=== PATIENT | female | born 1995 | race Caucasian/White ===

== ENCOUNTER 2022-09-17 16:13 | Emergency (ER) | payer OTHER ==
[~2022-09-17] VITALS: Ht 165 cm; Wt 97.0 kg
[2022-09-17] MEDS ORDERED: ORPHENADRINE 60 MG/2 ML (NORFLEX) AMP (ED ONLY) IM ONE (17:00)
--- NOTE | 2022-09-17 17:02 | ED General ---
General Chief Complaint: General Problems/Pain Stated Complaint: RIGHT ARM PAIN|FROM WRIST TO NECK Nursing Triage Note: ARRIVED VIA AMB TO FT WITH COMPLAINTS OF WAKING UP WITH RIGHT NECK/ARM PAIN TODAY AND SCIATICA FOR WEEKS. Source of Information: Patient Exam Limitations: No Limitations History of Present Illness Date Seen by Provider: September 17, 2022 Time Seen by Provider: 16:49 Initial Comments 27-year-old female presents to the ED with complaints of sciatic nerve pain for the last 2 weeks. Reports the pain starts in her lower back and radiates posteriorly down both legs to her feet. She reports intermittent numbness and tingling in her legs, states it has been a month since she had numbness and tingling. She reports intermittent numbness and tingling in both of her hands and feet. Denies bowel incontinence. Reports that she has some issues with incontinence since having 4 children, states that it occurs if she does not get to the bathroom in time. Denies any bladder or bowel retention. Denies difficulty walking. She also reports that this morning she woke up with pain from her right wrist up to her neck. Patient reports that she thinks that her bed is poor, and that is why she is having these pains. She reports that she took ibuprofen approximately 1 hour ago, states that it has helped the pain. Allergies and Home Medications Allergies Coded Allergies: codeine (Verified Adverse Reaction, Unknown, VOMITING, 09/17/22) Patient Home Medication List Home Medication List Reviewed: Yes Cyclobenzaprine HCl (Cyclobenzaprine HCl) 10 Mg Tablet, 10 MG PO TID Prescribed by: Jackie Puckett on 09/17/221756 Methylprednisolone (Methylprednisolone Dose Pack) 4 Mg Tab.ds.pk, 4 MG PO UD Prescribed by: Jackie Puckett on 09/17/221756 Review of Systems Review of Systems Constitutional: see HPI Past Shyhsra-Pfuyqq-Swjdvl Hx Patient Social History Tobacco Use?: Yes Tobacco type used: Cigarettes Smoking Status: Current Everyday Smoker Alcohol Use?: No Physical Exam Vital Signs Vital Signs - First Documented 09/17/22 16:30 Temp 36.5 Pulse 86 Resp 16 B/P (MAP) 111/78 (89) Pulse Ox 99 O2 Delivery Room Air Capillary Refill : Less Than 3 Seconds Height, Weight, BMI Height: '" Weight: lbs. oz. kg; 35.00 BMI Method: General Appearance: No Apparent Distress, WD/WN Neck: Non Tender, Supple Respiratory: Lungs Clear, Normal Breath Sounds, No Accessory Muscle Use Cardiovascular: Regular Rate, Rhythm Back: Muscle Spasm (Muscle tenderness to palpation), Vertebral Tenderness (Tenderness in thoracic and lumbar region) Extremity: Normal Capillary Refill, Normal Inspection, Normal Range of Motion Neurologic/Psychiatric: Alert, Normal Mood/Affect Skin: Normal Color, Warm/Dry Progress/Results/Core Measures Suspected Sepsis SIRS Temperature: Pulse: 86 Respiratory Rate: 16 Blood Pressure 111 /78 Mean: 89 Results/Orders My Orders Orders - JACKIE PUCKETT APRN Orphenadrine Inj (Ed Only) (Norflex Inje (09/17/22 17:00) Dexamethasone Injection (Decadron Inje (09/17/22 17:00) Sacrum And Coccyx (09/17/22 16:56) Ct Thoracic/Lumbar Spine Wo (09/17/22 16:54) Ct Cervical Spine Wo (09/17/22 ) Medications Given in ED Vital Signs/I&O 09/17/22 09/17/22 16:30 18:06 Temp 36.5 36.5 Pulse 86 80 Resp 16 16 B/P (MAP) 111/78 (89) 107/74 Pulse Ox 99 99 O2 Delivery Room Air Room Air Capillary Refill : Less Than 3 Seconds Blood Pressure Mean: 89 Progress Note : Time: 17:01 Progress Note Patient seen and evaluated, resting comfortably in recliner, no acute distress. Based on exam and symptoms, CT ordered of cervical, thoracic, lumbar spine. Sacrum and coccyx x-rays ordered. Norflex and Decadron ordered. Patient took ibuprofen 1 hour ago, will not order Toradol. Imaging reviewed. Mild early degenerative changes at L5-S1 witj slight disc bulging and endplate spurring causing mild narrowing of the neural foramen. Minimal osteoarthritic changes of the SI joints. Results discussed with patient. Will discharge with medrol dose pack and muscle relaxer. Discharge instructions and return precautions provided. Diagnostic Imaging Diagonstic Imaging: CT Plain Films/CT/US/NM/MRI: c-spine Comments [facility] [place], [place] NAME: [facility]ALI[facility]LEY [facility] REC#: [id number] PT STATUS: DEP ER : 1995 PHYSICIAN: JACKIE PUCKETT APRN ADMIT DATE: 09/17/22/ER Signed Date of Exam:09/17/22 CT CERVICAL SPINE WO PROCEDURE: CT cervical spine without contrast. TECHNIQUE: Multiple contiguous axial images were obtained through the cervical spine without the use of intravenous contrast. Sagittal and coronal reformations were then performed. Auto Exposure Controls were utilized during the CT exam to meet ALARA standards for radiation dose reduction. INDICATION: Neck pain. Right arm and hand pain. FINDINGS: Cervical spine alignment is normal. There are normal relationships of the craniocervical junction. There are normal relationships of the lateral masses of C1 and C2. Facets are normally aligned. There is no facet joint or disc space widening. The vertebral body heights are maintained. There is no fracture. There is no suspicious bone lesion. By CT imaging, there are no findings to suggest high-grade cervical central canal or neural foraminal stenosis. The lung apices are clear. Soft tissues of the neck demonstrate no acute process. There are mildly prominent bilateral cervical chain lymph nodes which are likely reactive in a patient of this age. IMPRESSION: 1. Normal cervical spine alignment without fracture or suspicious bone lesion. 2. No findings of canal or foraminal stenosis 3. Mildly prominent cervical lymph nodes are likely reactive in a young patient of this age. Dictated by: Dictated on workstation # [id number] Dict: 09/17/22 1722 Trans: 09/17/221816 [facility] [id number] Interpreted by: FILIPE THOMAS MD Electronically signed by: FILIPE THOMAS MD 09/17/221816 Diagonstic Imaging: CT Plain Films/CT/US/NM/MRI: other (spine) Comments [facility]. [place] NAME: RYLEY FISHER [facility] REC#: [id number] PT STATUS: DEP ER : 1995 PHYSICIAN: JACKIE PUCKETT APRN ADMIT DATE: 09/17/22/ER Signed Date of Exam:09/17/22 CT THORACIC/LUMBAR SPINE WO PROCEDURE: CT thoracic and lumbar spine without contrast. TECHNIQUE: Multiple contiguous axial images were obtained through the thoracic and lumbar spine without the use of intravenous contrast. Sagittal and coronal reformations were then performed. All CT scans use one or more of the following dose optimizing techniques: automated exposure control, MA and/or KvP adjustment based on a patient size and exam type, or iterative reconstruction. INDICATION: Back pain. Sciatica. COMPARISON: No comparison of the thoracic and lumbar spine available. FINDINGS: Alignment of the thoracic and lumbar spine are both normal. The vertebral body heights are maintained. There are no findings of a fracture. There is no suspicious bone lesion. The facets are normally aligned. There are no findings of a pars defect. By CT imaging, there are no CT features to suggest significant thoracic canal stenosis or evidence to suggest high-grade lumbar canal stenosis. There are no CT findings to suggest high-grade foraminal stenosis. There is some mild narrowing of the neural foramen bilaterally at L5-S1 due to slight disc bulging and small endplate spurs. The visualized bones of the pelvis are normal. The paraspinal soft tissues are unremarkable. The aorta is normal in caliber. The kidneys are nonobstructed. The lungs are clear where visualized without findings of pneumonia or an effusion. IMPRESSION: 1. Normal height and alignment of the thoracic and lumbar spine without evidence of an acute fracture or suspicious bone lesion. 2. No CT findings to suggest significant thoracic or lumbar canal stenosis. 3. Mild early degenerative endplate changes at L5-S1 with slight disc bulging and endplate spurring resulting in mild narrowing of the neural foramen. Dictated by: Dictated on workstation # [id number] Dict: 09/17/22 1723 Trans: 09/17/221816 AS6 [id number] Interpreted by: FILIPE THOMAS MD Electronically signed by: FILIPE THOMAS MD 09/17/221816 Diagonstic Imaging: Xray Plain Films/CT/US/NM/MRI: other (sacrum and coccyx) Comments [facility] [place] [place] [place] NAME: RYLEY FISHER [facility] REC#: [id number] PT STATUS: DEP ER : 1995 PHYSICIAN: JACKIE PUCKETT APRN ADMIT DATE: 09/17/22/ER Signed Date of Exam:09/17/22 SACRUM AND COCCYX INDICATION: Sciatica and pain. FINDINGS: There are osteoarthritic-type changes demonstrated at the SI joints with some mild sclerosis. There are no features to suggest erosions. There is no fracture. The pelvic ring is intact. The hips are unremarkable. IMPRESSION: Minimal osteoarthritic changes of the SI joints without findings of diastasis, fracture or evidence of erosions. Dictated by: Dictated on workstation # [id number] Dict: 09/17/221728 Trans: 09/17/221816 AS6 [id number] Interpreted by: FILIPE THOMAS MD Electronically signed by: FILIPE THOMAS MD 09/17/221816 Departure Impression Primary Impression: Sciatic leg pain Additional Impressions: Osteoarthritis Bone spur Arm pain Disposition: HOME, SELF-CARE Condition: Stable Departure-Patient Inst. Decision time for Depature: 17:53 Patient Instructions: Osteoarthritis, Sciatica ED Add. Discharge Instructions: You may take 800 mg of ibuprofen every 8 hours with food as needed for pain. You may also take 1000 mg of Tylenol every 8 hours as needed for pain. Take Flexeril as needed for pain, it may make you sleepy. Take Medrol Dosepak as prescribed. Return for numbness or tingling in your inner thighs, bowel or bladder incontinence or retention, difficulty walking, or any other new, concerning, or worsening symptoms. All discharge instructions reviewed with patient and/or family. Voiced unde rstanding. Scripts Methylprednisolone (Methylprednisolone Dose Pack) 4 Mg Tab.ds.pk 4 MG PO UD for 6 Days, #21 PKG 0 Refills PER DOSE PACK INSTRUCTIONS Prov: JACKIE PUCKETT APRN 09/17/22 Cyclobenzaprine HCl (Cyclobenzaprine HCl) 10 Mg Tablet 10 MG PO TID, #20 TAB 0 Refills Prov: JACKIE PUCKETT APRN 09/17/22 JACKIE PUCKETT APRN September 17, 2022 17:02
--- NOTE | 2022-09-17 17:30 | Diagnostic Imaging Report ---
PROCEDURE: CT thoracic and lumbar spine without contrast. TECHNIQUE: Multiple contiguous axial images were obtained through the thoracic and lumbar spine without the use of intravenous contrast. Sagittal and coronal reformations were then performed. All CT scans use one or more of the following dose optimizing techniques: automated exposure control, MA and/or KvP adjustment based on a patient size and exam type, or iterative reconstruction. INDICATION: Back pain. Sciatica. COMPARISON: No comparison of the thoracic and lumbar spine available. FINDINGS: Alignment of the thoracic and lumbar spine are both normal. The vertebral body heights are maintained. There are no findings of a fracture. There is no suspicious bone lesion. The facets are normally aligned. There are no findings of a pars defect. By CT imaging, there are no CT features to suggest significant thoracic canal stenosis or evidence to suggest high-grade lumbar canal stenosis. There are no CT findings to suggest high-grade foraminal stenosis. There is some mild narrowing of the neural foramen bilaterally at L5-S1 due to slight disc bulging and small endplate spurs. The visualized bones of the pelvis are normal. The paraspinal soft tissues are unremarkable. The aorta is normal in caliber. The kidneys are nonobstructed. The lungs are clear where visualized without findings of pneumonia or an effusion. IMPRESSION: 1. Normal height and alignment of the thoracic and lumbar spine without evidence of an acute fracture or suspicious bone lesion. 2. No CT findings to suggest significant thoracic or lumbar canal stenosis. 3. Mild early degenerative endplate changes at L5-S1 with slight disc bulging and endplate spurring resulting in mild narrowing of the neural foramen. Dictated by: Dictated on workstation # [id number]
--- NOTE | 2022-09-17 17:31 | Diagnostic Imaging Report ---
PROCEDURE: CT cervical spine without contrast. TECHNIQUE: Multiple contiguous axial images were obtained through the cervical spine without the use of intravenous contrast. Sagittal and coronal reformations were then performed. Auto Exposure Controls were utilized during the CT exam to meet ALARA standards for radiation dose reduction. INDICATION: Neck pain. Right arm and hand pain. FINDINGS: Cervical spine alignment is normal. There are normal relationships of the craniocervical junction. There are normal relationships of the lateral masses of C1 and C2. Facets are normally aligned. There is no facet joint or disc space widening. The vertebral body heights are maintained. There is no fracture. There is no suspicious bone lesion. By CT imaging, there are no findings to suggest high-grade cervical central canal or neural foraminal stenosis. The lung apices are clear. Soft tissues of the neck demonstrate no acute process. There are mildly prominent bilateral cervical chain lymph nodes which are likely reactive in a patient of this age. IMPRESSION: 1. Normal cervical spine alignment without fracture or suspicious bone lesion. 2. No findings of canal or foraminal stenosis 3. Mildly prominent cervical lymph nodes are likely reactive in a young patient of this age. Dictated by: Dictated on workstation # [id number]
--- NOTE | 2022-09-17 17:32 | Diagnostic Imaging Report ---
INDICATION: Sciatica and pain. FINDINGS: There are osteoarthritic-type changes demonstrated at the SI joints with some mild sclerosis. There are no features to suggest erosions. There is no fracture. The pelvic ring is intact. The hips are unremarkable. IMPRESSION: Minimal osteoarthritic changes of the SI joints without findings of diastasis, fracture or evidence of erosions. Dictated by: Dictated on workstation # [id number]
[2022-09-17] MEDS ORDERED: METH4TAB10 PO (17:57)
[2022-09-17] MEDS ORDERED: CYCL10TA25 PO (17:57)
[2022-09-17 18:06] VITALS: BP 107/74
== END 2022-09-17 18:07 | disposition home or self-care (01) ==
LOC: ER 16:21
DX: M54.40 Lumbago with sciatica, unspecified side (principal); M19.90 Unspecified osteoarthritis, unspecified site; M77.8 Other enthesopathies, not elsewhere classified; F17.210 Nicotine dependence, cigarettes, uncomplicated; Z28.310 Unvaccinated for COVID-19
CPT/HCPCS: 72125; 72128; 72131; 72220